=== PATIENT | male | born 1965 | race Caucasian/White ===

== ENCOUNTER → 2016-10-20 | Outpatient (CLI) | payer OTHER ==
--- NOTE | 2016-10-20 14:28 | DI ---
US GDE NDL PLCMNT BX/ASP/INJ,10/20/2016 9:56 AM: Clinical History: Thyroid nodule Previous Exam: October 06, 2016 Procedure: Risks, benefits and alternatives were explained to the patient and informed written consen t obtained. The patient was placed supine on the sonography table and the right neck prepped and draped in usual sterile fashion. 1% lidocaine was used for local anesthesia. Under sonographic guidance, 2 passes were made into a solid nodule within the inferior right thyroid lobe. The patient tolerated the procedure well and was sent home in good condition. Findings: Images demonstrate passes into the right thyroid nodule. Impression: Successful right thyroid nodule biopsy. Pathology pending.
== END ==
LOC: US 09:24
PROVIDERS: ATTEND Surgery
DX: E04.1 Nontoxic single thyroid nodule (principal); F17.220 Nicotine dependence, chewing tobacco, uncomplicated
CPT/HCPCS: 76536; 76942

== ENCOUNTER 2017-01-08 16:59 | Emergency (ER) | payer OTHER ==
[2017-01-08 17:09] VITALS: RESP 18; TEMP 98.3
[2017-01-08] MEDS ORDERED: LORazepam 2 MG/1 ML VIAL IVP ONE (17:10)
[2017-01-08] MEDS ORDERED: KETOROLAC 30 MG/1 ML VIAL IVP ONE (17:10)
[2017-01-08] MEDS ORDERED: ONDANSETRON 4 MG/2 ML VIAL IVP ONE (17:10)
[2017-01-08] MEDS ORDERED: Sodium Chloride 0.9% 1,000 ML PRIMARY IV ONE (17:10)
--- NOTE | 2017-01-08 17:16 | PDOC ---
Back Pain / Injury HPI - General Chief Complaint: Neck / Back Complaint Stated Complaint: LOW BACK PAIN Date Seen by Provider: 01/08/17 Time Seen by Provider: 17:11 Source: Patient Exam Limitations: POSITIVE: No limitations Nurse's Notes Reviewed & Considered: Yes - History of Present Illness Initial Comments: The patient comes in today with a chief complaint of lumbar back pain. Patient has a long history of back problems stemming from L1 fracture in the . Beginning this past Monday patient developed difficulty ambulating, he did have one episode of incontinence of bowel with diarrhea, nausea, sweats. He saw physical therapy on Monday was given back exercises and by Monday he had increased pain. He denies any incontinence of urine. He is stumbling some in his gait but no foot drop. Body Location Affected: REPORTS: Back Timing: REPORTS: Constant Duration: Unknown Severity: Severe Quality: REPORTS: "Pain", Sharpness, Stabbing, Throbbing, Tenderness Context: REPORTS: None Location at Time of Onset: REPORTS: Home Modifying Factors: improves with: Nothing Associated Symptoms: REPORTS: Back pain, Diaphoresis, Nausea, Rash, Diarrhea, Incontinent Stool, Difficulty Walking Similar Symptoms Previously: No Recent Care Received: REPORTS: Recently Seen (By physical therapy) Any Prior Injuries Related to Current Complaint?: Yes (L1 fracture) - Patient Home Medications Home Medications: Home Medications Melatonin/Pyridoxine [Melatonin 3 Mg Tablet] 1 each PO tab 08/30/16 Mirtazapine 30 mg PO DAILY tab 08/30/16 Fluticasone Propionate [Flonase Allergy Relief] 2 spr GENNY BID #1 spr 09/02/16 Lisinopril 1 tab PO DAILY tab 11/01/16 Hydrocodone Bit/Acetaminophen [[place] 7.5-325 Tablet] 1 tab PO Q4-6H #15 tab Metaxalone 800 mg PO TID #20 tab 01/04/17 - Patient Allergies Allergies/Adverse Reactions: Allergies Allergy/AdvReac Type Severity Reaction Status Date / Time fluoxetine HCl [From Prozac] Allergy Intermediate Unverified 01/04/17 16:49 paroxetine HCl [From Paxil] Allergy Intermediate Unverified 01/04/17 16:49 Past Medical History - heen HEENT History: Denies History Cardiovascular History: Hypertension Respiratory History: Denies History Gastrointestinal History: Denies History Genitourinary History: Denies History Endocrine History: Denies History Musculoskeletal History: Back Injury Neurological History: Denies History Blood Disorders: Denies History Psychiatric History: Denies History History of Sexually Transmitted Diseases: No Male Reproductive History: Denies History Cancer History: Denies History In Past Year Been Physically Harmed or Verbally Threatened: No History of MDRO: No History of Other Communicable Diseases: No Tobacco Use: Never Smoker Alcohol Use: Rarely Substance Use Type: None Previous Surgical History: No Significant Family History: No pertinent family hx ROS - Limitations ROS Limitations: No Limitations Constitution: REPORTS: Diaphoresis, Weakness Cardiovascular: REPORTS: Denies Cardiac Symptoms Respiratory: REPORTS: Denies Resp Symptoms Neurological: REPORTS: Difficulty Walking Gastrointestinal: REPORTS: Nausea, Diarrhea Endocrine: REPORTS: Denies Symptoms Musculoskeletal: REPORTS: Back Pain Genitourinary: REPORTS: Other (Increased frequency of urination) Eyes: REPORTS: Denies Symptoms ENT: REPORTS: Denies Symptoms Skin: REPORTS: Rash (Rash from tape on his back) Lympathic: REPORTS: Denies Lympathic Symptoms Immunologic: POSITIVE: Denies Symptoms Psychiatric: POSITIVE: Denies Psych Symptoms Back Physical Assessment - General Appearance General Appearance: REPORTS: Alert, Cooperative, No Evidence of Trauma, Mild Distress - HEENT HEENT: POSITIVE: Head Inspection Nml, Eyes Inspection Nml, Ears Inspection Nml, Nose Inspection Nml, PERRL, EOMI - Pupil Size Pupil Size: 4 mm: Bilateral - Neck Neck: POSITIVE: Non Tender, Painless ROM, Trachea Midline - Respiratory / CVS Respiratory / CVS: POSITIVE: Chest Non Tender, No Ecchymosis, Breath Sounds Normal, No Respiratory Distress, Heart Sounds Normal, Regular Rate/Rhythm - Abdomen Abdomen: Soft: (All Quadrants), Normal Bowel Sounds: (All Quadrants), Denies Tenderness: (All Quadrants) - Back Back: REPORTS: No Vertebral Tenderness, CVA Tenderness (R), Muscle Spasm (Right paraspinal muscles at the level of L1) - Skin Skin: REPORTS: Intact, Normal For Race, Warm, Dry, Rash (Rash along the paraspinal region of the 7 through L1 consistent with tape that was applied by physical therapy.) - Extremities Extremity Assessment: Non-Tender: (ALL), Normal ROM: (ALL), No Edema: (ALL), Normal Inspection: (ALL) Musculoskeletal: REPORTS: Back Pain - Neurological / Psychological Neuro / Psych: POSITIVE: Oriented X3, Motor Normal, Sensation Normal, Mood Appropriate, Affect Appropriate Back Progress - Results Reviewed by me Xrays/CTs/US Reviewed: Yes Discussed with Radiologist: Yes Lab Results Reviewed: Yes Lab Results:: Laboratory Results 01/08/17 01/08/17 Range/Units 17:23 17:25 WBC 11.75 H (4.8-10.8) 10^3/uL RBC 5.39 (4.70-6.10) 10^6/uL Hgb 15.9 (14.0-18.0) g/dL Hct 46.1 (42.0-52.0) % MCV 85.5 (80-90) FL MCH 29.5 (27-31) PG MCHC 34.5 (33-37) g/dL RDW Std Deviation 44.8 (39-50) fL RDW Coeff of [place] 14.4 (11.5-14.5) % Plt Count 363 H (140-350) 10*3/uL MPV 9.6 (7.4-12.2) FL Immature Gran % (Auto) 0.3 (0-5) % Neut % (Auto) 65.2 (50-80) % Lymph % (Auto) 24.2 (10-50) % [place] % (Auto) 7.3 (5-15) % Eos % (Auto) 2.4 (0-8) % Baso % (Auto) 0.6 (0-1) % Immature Gran # (Auto) 0.03 10*3/UL Neut # (Auto) 7.67 10*3/UL Lymph # (Auto) 2.84 10*3/uL [place] # (Auto) 0.86 H (0.3-0.8) 10*3/UL Eos # (Auto) 0.28 10*3/UL Baso # (Auto) 0.07 10*3/UL WBC Morphology Comment Normal morphology (NORM) Plt Morphology Comment Normal morphology (NORM) RBC Morph Comment Normal morphology (NORM) Sodium 138 (135-145) meq/L Potassium 3.9 (3.8-5.2) meq/L Chloride 103 (98-112) meq/L Carbon Dioxide 23 (23-33) meq/L Anion Gap 12 (5-20) BUN 16 (7-22) mg/dL Creatinine 0.8 (0.70-1.50) mg/dL Estimated GFR > 60 (>60 ml/min/1.73m(2)) BUN/Creatinine Ratio 20.00 (6-20) Glucose 98 (78-110) mg/dL Calculated Osmolality 286.0 (267-292) mOsm/kg Calcium 10.3 (8.7-10.7) mg/dL Magnesium 2.0 (1.6-2.4) mg/dL Total Bilirubin 0.8 (0.3-1.2) mg/dL AST 30 (21-57) IU/L ALT 38 (21-72) IU/L Alkaline Phosphatase 87 (38-126) IU/L C-Reactive Protein 0.6 (0.0-0.9) mg/dL Total Protein 8.0 (6.1-8.0) g/dL Albumin 4.7 (3.5-4.8) g/dL Globulin 3.3 (2.50-4.10) g/dL Albumin/Globulin Ratio 1.40 (1.3-2.0) mg/g Ur Collection Type Clean catch urine Urine Color Yellow Urine Clarity Clear (CLEAR) Urine pH 6.5 (5.0-8.5) Ur Specific [place] 1.020 (1.005-1.030) Urine Protein Negative (NEG) mg/dl Urine Glucose (UA) Negative (NEG) mg/dL Urine Ketones Negative (NEG) Urine Occult Blood Moderate H (NEG) Urine Nitrate Negative (NEG) Urine Bilirubin Negative (NEG) Urine Urobilinogen 0.2 (0.2) EU/dL Ur Leukocyte Esterase Negative (NEG) Urine RBC 5-8 (NONE) /hpf Urine WBC 1-3 (NONE) Ur Squamous Epith Cells Rare (NONE) Ur Renal Epithelial Cell None (NONE) Urine Crystals None Urine Bacteria None (NONE) Urine Casts None (NONE) Urine Mucus None (NONE) Urine Trichomonas None (NONE) Urine Yeast None (NONE) Ur Culture Indicated? Culture not set - Patient's Progress Pain Medication Addressed: POSITIVE: Yes School/Work Release Addressed: POSITIVE: Yes Re-Examine Time: 19:28 Status: POSITIVE: Improved MDM / ED Course: Patient was examined, an IV started, blood drawn and sent to the lab for studies , CT scan of abdomen was obtained. Patient received Toradol, Zofran, Ativan, Norflex. His symptoms did improve. Findings: CT scan shows degeneration of his lumbar spine with protrusion of disc into the L1-L2 disc space, as well as degeneration of L2-L3. There is also noted to be a kidney stone in the right renal parenchyma. CBC shows a slight elevation of his white count. Compressive metabolic panel is unremarkable. Next Assessment: Back pain with decreased ability for ambulation related to impingement at L1-L2. Nephrolithiasis. Plan: Discharge home, Percocet, baclofen, obtain MRI and surgical consult. - Consult Counseled: POSITIVE: Patient, RE: Lab Results, RE: Radiology Results, RE: DX, RE : Need for F/U Patient Care Time - Estimated PCT Patient Care Time (In Minutes): 45 Vital Signs - Recent Vital Signs Vital Signs: Vital Signs (Last 8 hours) Temp Pulse Resp BP Pulse Ox 01/08/17 17:01 98.3 F 92 18 180/116 96 - VS Reviewed Vital Signs Reviewed: Yes Discharge Clinical Impression: Acute low back pain, Chronic back pain Discharge Disposition: Discharged to Home Condition: Stable Patient Instructions Given at Discharge: Back Pain (ED)
[2017-01-08 17:34] LABS: BASOPHILS # (AUTO) 0.07 10*3/UL; BASOPHILS % (AUTO) 0.6 % (0-1); EOSINOPHILS # (AUTO) 0.28 10*3/UL; EOSINOPHILS % (AUTO) 2.4 % (0-8); HEMATOCRIT 46.1 % (42.0-52.0); HEMOGLOBIN 15.9 g/dL (14.0-18.0); LYMPHOCYTES # (AUTO) 2.84 10*3/uL; MEAN CORPUSCULAR HEMOGLOBIN 29.5 PG (27-31); MEAN CORPUSCULAR HGB CONC 34.5 g/dL (33-37); MEAN CORPUSCULAR VOLUME 85.5 FL (80-90); MEAN PLATELET VOLUME 9.6 FL (7.4-12.2); MONOCYTES # (AUTO) 0.86 10*3/UL (0.3-0.8); MONOCYTES % (AUTO) 7.3 % (5-15); NEUTROPHILS # (AUTO) 7.67 10*3/UL; NEUTROPHILS % (AUTO) 65.2 % (50-80); RED BLOOD COUNT 5.39 10^6/uL (4.70-6.10)
[2017-01-08 17:35] LABS: PLATELET MORPHOLOGY COMMENT NORMAL MORPHOLOGY (NORM); RBC MORPHOLOGY COMMENT NORMAL MORPHOLOGY (NORM); WBC MORPHOLOGY COMMENT NORMAL MORPHOLOGY (NORM)
[2017-01-08 17:46] LABS: BLOOD UREA NITROGEN 16 mg/dL (7-22); C-REACTIVE PROTEIN 0.6 mg/dL (0.0-0.9); CALCIUM 10.3 mg/dL (8.7-10.7); EST GLOMERULAR FILTRATION > 60 (>60 ml/min/1.73m(2)); SERUM ALBUMIN 4.7 g/dL (3.5-4.8)
[2017-01-08 17:49] LABS: BILIRUBIN,URINE NEGATIVE (NEG); CLARITY,URINE CLEAR (CLEAR); COLOR,URINE YELLOW; GLUCOSE, URINE (UA) NEGATIVE (NEG); NITRATE,URINE NEGATIVE (NEG); OCCULT BLOOD,URINE MODERATE (NEG); PH,URINE 6.5 (5.0-8.5); PROTEIN,URINE NEGATIVE (NEG); URINE SAMPLE TYPE CLEAN CATCH URINE; UROBILINOGEN,URINE 0.2 EU/dL (0.2)
[2017-01-08 17:50] LABS: SQUAMOUS EPITHELIAL CELL,UR RARE
--- NOTE | 2017-01-08 19:37 | DI ---
HISTORY: Hematuria and pain in the L1 level. COMPARISON: None available. TECHNIQUE: Multiple helically acquired CT images were obtained through the abdomen and pelvis withou t contrast. FINDINGS: Examination demonstrates a normal urinary bladder. There are degenerative changes involving the L2/L3 level where there is partial fusion on the left. There is also small lucency within the left L3 vertebral body measuring 8 mm in diameter. There is also focal kyphosis centered at the L1/L2 level with some posteriorly projecting osteophytes and some disc material into the central canal. There is also a right 5 mm renal parenchymal stone within the infra-pole of the right kidney. There is no hydronephrosis nor nephrolithiasis. The ureters are normal in course and caliber. The liver, spleen, pancreas and adrenals are unremarkable. The appendix is also normal. Moderate stool seen throughout the colon. The urinary bladder is unremarkable. The lung bases are clear. IMPRESSION: 1. Focal kyphosis at the L1/L2 level with posterior protrusion of endplate osteophytes and disc mater ial likely causing significant stenosis. Consider MRI for further evaluation. 2. Degenerative endplate changes and sclerosis of the L2/L3 level with a small lucency involving the L3 vertebral body. This is most likely post traumatic or chronic degenerative. Cannot rule out the possibility of an old infection. This would very unlikely represent an osteoid osteoma. Recommend MR I lumbar spine for further evaluation. NOTIFICATION: The above findings and recommendations were phoned to Keely Douglas in the ER [facility] on 01/08/2017 at 09:55 PM EST.
== END 2017-01-08 20:04 | disposition home or self-care (01) ==
LOC: ER 16:59
DX: M54.5 Low back pain (principal); R15.9 Full incontinence of feces; R11.0 Nausea; M51.36 Other intervertebral disc degeneration, lumbar region
CPT/HCPCS: 74176; 80053; 81001; 81003; 83735; 85025; 86140; 96361; 96374; 96375; 99283 ×2; J1885; J2360; J2060; J2405; J7030

== ENCOUNTER → 2017-01-13 | Outpatient (CLI) | payer OTHER ==
--- NOTE | 2017-01-13 15:27 | DI ---
MRI LUMBAR SPINE W/WO CN,01/13/2017 10:52 AM: Clinical History: The disc impingement at L1/2. Previous Exam: CT abdomen pelvis performed January 08, 2017 Findings: Multiplanar MR images are obtained through the lumbar spine with and without intravenous contrast, an d demonstrate reversal of the normal lordotic curvature of the lumbar spine centered at the L1/2 leve l. The kidneys are unremarkable. The major vascular flow voids are also unremarkable. The paravertebral soft tissues are unremarkable as well. Signal the distal spinal cord is normal and the conus is seen at the L1 level. Individual intervertebral disc spaces: T12/L1: There is disc desiccation, annular fissuring and a bro ad-based disc bulge contributing to moderate central canal stenosis. There is also facet hypertrophy with no significant neural foraminal narrowing. L1/2: There is a broad-based disc bulge with some endplate osteophytes at this level combining with s ome facet and ligamentum flavum hypertrophy to cause severe central canal stenosis and mild bilateral neural foraminal narrowing. L2/3: There is disc desiccation and irregularity of the vertebral body. There is a far lateral compon ent on the left. There are endplate osteophytes as well. There is mild facet hypertrophy. There is mi ld central canal stenosis at this level and mild to moderate bilateral neuroforaminal narrowing. L3/4: There is a broad-based disc bulge with disc desiccation and some annular fissuring combining wi th facet and ligamentum flavum hypertrophy to cause severe central canal stenosis and moderate to sev ere bilateral neural foraminal narrowing. L4/5: There is a broad-based disc bulge and some mild facet and ligamentum flavum hypertrophy contrib uting to severe right and moderate to severe left lateral recess stenosis. L5/S1: There is disc desiccation, annular fissuring and a broad-based disc bulge combining with some facet and ligamentum flavum hypertrophy to cause moderate to severe right and mild left neural forami nal narrowing. Impression: 1. Severe central canal stenosis at L1/2 and L3/4. 2. Severe lateral recess stenosis at L4/5 on the right and L5/S1 on the right. 3. Moderate to severe bilateral neural foraminal narrowing at L3/4. Other less severe findings as above.
== END ==
LOC: MRI 10:36
PROVIDERS: ATTEND Family Medicine
DX: M54.5 Low back pain (principal); M48.06 Spinal stenosis, lumbar region; M48.07 Spinal stenosis, lumbosacral region
CPT/HCPCS: 72158; A9579

== ENCOUNTER → 2017-01-17 | Outpatient (CLI) | payer OTHER ==
--- NOTE | 2017-01-17 16:39 | DI ---
LUMBAR SPINE SERIES, 01/17/2017 10:46 AM: Clinical History: Low back pain. Previous Exam: None at this facility. 3 routine upright views are submitted. The vertebral bodies are of normal height and size. There is m oderate chronic disc space narrowing at L2-3 and L5-S1 with extensive osteophytic spurring along the left anterolateral aspect of the L2-3 disc space level. Arthritic changes are present in the L5-S1 ap ophyseal joints bilaterally. The pedicles and remaining posterior elements are normal. Both SI joints are normal. There is a defect in the superior aspect of the left iliac wing and the appearance is co nsistent with the iliac crest representing a donor site for bone grafts. Readin. Chronic disc space narrowing at L2-3 and L5-S1 with arthritic changes in the apophyseal joints bi laterally at L5-S1. 2. There is extensive osteophytic spurring along the left anterolateral margin of the L2-3 disc spac e.
== END ==
LOC: ORTHO 12:01
PROVIDERS: ATTEND Physician Assistant
DX: M54.5 Low back pain (principal); M51.16 Intervertebral disc disorders with radiculopathy, lumbar region; M47.16 Other spondylosis with myelopathy, lumbar region
CPT/HCPCS: 72110

== ENCOUNTER → 2017-05-02 | Outpatient (CLI) | payer OTHER ==
--- NOTE | 2017-05-02 11:54 | DI ---
THYROID ULTRASOUND, 05/02/2017 10:39 AM Clinical History: Thyroid nodule. Previous Exam: 10/06/2016. Scans are performed through both lobes of the thyroid gland in multiple projections with the high res olution linear array probe. Color Doppler ultrasound is also performed. The right lobe is larger than the left lobe. The right and left lobes measure 17 x 17 x 49 mm, and 15 x 13 x 33 mm, in the AP, transverse, and longitudinal dimensions, respectively. The sonographic text ure is normal. In the lower pole of the right lobe is the previously noted solid nodule with a sonolu cent "capsule" that measures approximately 9 x 11 x 12 mm. The previous scan date measurements of 9 x 9 x 11 mm. Because the scans and the measurements are not obtained exactly in the same fashion as on the earlier study, the differences in measurements are felt to be insignificant and within the expec gerda range for inter-automatic fancy machine operator variability. The lesion is solid and has slightly increased vascularity. The remainder of the thyroid gland is normal. Readin. The well-circumscribed solid lesion in the lower pole of the right lobe of the thyroid gland has not changed. There is a hypoechoic perimeter or "capsule". The differences in measurement between the 2 studies is felt to represent inter-automatic fancy machine operator variability. 2. The remainder of the thyroid gland is normal.
== END ==
LOC: US 10:34
PROVIDERS: ATTEND Surgery
DX: E04.1 Nontoxic single thyroid nodule (principal)
CPT/HCPCS: 76536

== ENCOUNTER 2017-06-27 14:01 | Inpatient (IN) ==
[2017-06-27] MEDS ORDERED: ONDANSETRON 4 MG/2 ML VIAL IVP ONE (14:26)
[2017-06-27] MEDS ORDERED: NORMAL SALINE 10 ML SYRINGE FLUSH IVP PRN ×2 (14:26→18:03)
[2017-06-27] MEDS ORDERED: Sodium Chloride 0.9% 1,000 ML PRIMARY IV ONE ×3 (14:26→21:29)
[2017-06-27] MEDS ORDERED: MORPHINE SULFATE 4 MG/1 ML IVP ONE ×2 (14:26→18:18)
[2017-06-27 14:53] LABS: BASOPHILS # (AUTO) 0.14 10*3/UL; BASOPHILS % (AUTO) 0.7 % (0-1); EOSINOPHILS # (AUTO) 0.04 10*3/UL; EOSINOPHILS % (AUTO) 0.2 % (0-8); Hemoglobin [HGB] 13.7 g/dL (14.0-18.0); LYMPHOCYTES # (AUTO) 1.21 10*3/uL; MEAN CORPUSCULAR HEMOGLOBIN 29.4 PG (27-31); MEAN CORPUSCULAR HGB CONC 34.3 g/dL (33-37); MEAN CORPUSCULAR VOLUME 85.8 FL (80-90); MEAN PLATELET VOLUME 9.8 FL (7.4-12.2); MONOCYTES # (AUTO) 1.54 10*3/UL (0.3-0.8); MONOCYTES % (AUTO) 8.1 % (5-15); NEUTROPHILS # (AUTO) 16.12 10*3/UL; NEUTROPHILS % (AUTO) 84.5 % (50-80); RED BLOOD COUNT 4.66 10^6/uL (4.70-6.10)
[2017-06-27 15:03] LABS: BLOOD UREA NITROGEN 15 mg/dL (7-22); BUN/CREATININE RATIO 18.75 (6-20); LIPASE 32 IU/L (23-300); SERUM ALBUMIN 4.2 g/dL (3.5-4.8)
[2017-06-27 15:13] LABS: PLATELET MORPHOLOGY COMMENT NORMAL MORPHOLOGY (NORM); RBC MORPHOLOGY COMMENT NORMAL MORPHOLOGY (NORM); WBC MORPHOLOGY COMMENT NORMAL MORPHOLOGY (NORM)
[2017-06-27 15:32] LABS: BILIRUBIN,URINE NEGATIVE (NEG); CLARITY,URINE Slightly Cloudy (CLEAR); COLOR,URINE YELLOW (Y); GLUCOSE, URINE (UA) NEGATIVE (NEG); NITRATE,URINE POSITIVE (NEG); OCCULT BLOOD,URINE LARGE (NEG); PH,URINE 7.5 (5.0-8.5); PROTEIN,URINE 100 mg/dl (NEG)
--- NOTE | 2017-06-27 15:37 | DI ---
XR CXR 1VW,06/27/2017 3:06 PM: Clinical History: Additional sepsis screening. Previous Exam: None at this facility. Findings: A single frontal radiograph of the chest is obtained, and demonstrates clear lungs. The cardiomediast inum and bony thorax are unremarkable. Impression: Normal chest.
[2017-06-27 15:38] LABS: BACTERIA,URINE MANY; URINE SAMPLE TYPE CLEAN CATCH URINE; WBC,URINE 20-30
--- NOTE | 2017-06-27 17:03 | DI ---
CT CTA Chest Non-Coronary O,06/27/2017 3:31 PM: Clinical History: Shortness of breath. Previous Exam: None at this facility. Findings: Multiple helically acquired CT images are obtained through the chest following the intravenous admini stration of 110 cc of Isovue 370, and demonstrate mild subsegmental atelectasis. Mild degenerative changes of the thoracic spine are seen. The pulmonary arteries are normal demonstrating no evidence of filling defect or truncation to sugges t pulmonary embolism. The aorta is unremarkable. The thyroid is also unremarkable. Mild degenerative changes of the thoraci c spine are seen. The upper abdomen is unremarkable. Impression: No evidence of pulmonary embolism.
--- NOTE | 2017-06-27 17:22 | DI ---
CT Abdomen/Pelvis W Contrast,06/27/2017 3:32 PM: Clinical History: Abdominal pain. Previous Exam: None at this facility. Findings: Multiple helically acquired CT images are obtained through the abdomen and pelvis following intraveno us administration of contrast, and demonstrate clear lung bases. The ureters demonstrate normal course, caliber and appearance within orthotopic insertion on the urin beto bladder. A small amount of stool seen throughout the colon. Multiple bilateral simple renal cysts are noted. There are also small subcentimeter hypodensities too small to characterize which probably also represent simple cysts. The adrenals, pancreas, spleen and gallbladder are unremarkable. There is a small amount of fatty inf iltration of the liver. The appendix is normal. The urinary bladder is not well evaluated, but is grossly normal. Diffuse degenerative changes of the spine are seen. Impression: No acute intra-abdominal pathology.
[2017-06-27] MEDS ORDERED: Ertapenem Inj 1 GM in Sodium Chloride 0.9% 100 ML IV ONE (17:41)
[2017-06-27] MEDS ORDERED: Levofloxacin (Premix) 750 MG/150 ML PIGGYBACK IV ONE ×2 (17:52→18:09)
[2017-06-27] MEDS ORDERED: MORPHINE SULFATE 2 MG/1 ML IVP PRN (18:03)
[2017-06-27] MEDS ORDERED: LIDOCAINE W/ SODIUM BICARB 0.5 ML SYR SUBD PRN (18:03)
[2017-06-27] MEDS: ACETAMINOPHEN 325 MG TABLET PO PRN (19:16)
--- NOTE | 2017-06-27 20:49 | PDOC ---
HPI - History of Present Illness History of Present Illness: Visit michelle 52-year-old gentleman past medical history of depression and hypertension is on Remeron for his depression and this was given to him by Dr. Tapia at the [place] and then is been continued by heard his doctor in [place] he stays here but he is from [place]. He's also been seen previously in the ER with the for blood in his urine which diet which was diagnosed with a kidney stone he's also had MRIs of his lower back which showed canal stenosis in the past he also had a fine-needle biopsy of a thyroid nodule which was inconclusive. Was seen in the ER this evening because of her right lower inguinal and right flank pain CT scan of his chest abdomen and pelvis showed no PE no acute abdominal pathology but positive UA patient was admitted for a urinary tract infection/pyelonephritis/possible prostatitis. He also states that is been having some blood in his urine for the last 2 weeks but didn't think much of it. Appears very weak he is with fever I don't know if that he got his blood cultures drawn in the ER before antibiotic was given nevertheless I will draw blood cultures if they were not done in the ER Past Medical History Medical History: Hypertension, lower back care neural foraminal stenosis at all levels from MRI in the past, depression Tobacco Use: Former Smoker In the Past 12 Months, Have Used or Abuse Any of the Following Substance: None Alcohol Use: None Medication / Allergies Home Medications: Home Medications Medication Instructions Recorded Confirmed Type Melatonin/Pyridoxine [Melatonin 3 1 ea PO PRN tab 08/30/16 06/27/17 History Mg Tablet] Mirtazapine 30 mg PO DAILY tab 08/30/16 06/27/17 History Clindamycin HCl 300 mg PO TID #30 cap 05/01/17 Clinic Losartan [Cozaar] 1 tab PO DAILY 06/12/17 06/27/17 History Varenicline Tartrate [Chantix] 1 tab PO DAILY 06/12/17 06/27/17 History Allergies/Adverse Reactions: Allergies 3 Allergy/AdvReac Type Severity Reaction Status Date / Time fluoxetine HCl [From Prozac] Allergy Intermediate PARKINSON Verified 06/27/17 14 :16 LIKE SYMPTOMS paroxetine HCl [From Paxil] Allergy Intermediate PARKINSON Verified 06/27/17 14: 16 LIKE SYMPTOMS Review of Systems - Review of Systems All Systems: Reviewed & No Additional Complaints Except as Stated - Constitutional Constitutional: REPORTS: General Health Fair. DENIES: Weight Loss, Night Sweats , Fatigue - Eye Exam Eye Exam: DENIES: Negative System Review, Acuity Good, Acuity Fair, Acuity Poor , Glasses/Contacts, Vision Loss, Blurring, Redness, Diplopia, Catarats, Other, See HPI - Respiratory Respiratory: DENIES: Negative System Review, Cough, Sputum, Dyspnea At Rest, Dyspnea with Exertion, Pleuritic Pain, Hemoptysis, Wheezing, Other, See HPI - Gastrointestinal Gastrointestinal / Abdominal: DENIES: Negative System Review, Nausea, Vomiting, Diarrhea, Constipation, Abdominal Pain, Bloody Stool, Poor Appetite, Heartburn, Regurgitation, Bloating, Lactose Intolerance, Melena, Bright Red Blood per Rectum, Other, See HPI - Genitourinary Genitourinary: REPORTS: Hematuria, Decreased Stream - Psychiatric Psychiatric: DENIES: Hopelessness, Suicidality, Tearfullness Exam - Vitals Vital Signs: Vital Signs Temperature 101.0 F Temperature Source Temporal Artery Scan Pulse Rate [Pulse Oximeter] 114 Pulse Rate 108 Respiratory Rate 16 Blood Pressure 115/66 Pulse Ox 90 Oxygen Flow Rate 2 Oxygen Delivery Method Nasal Cannula Height 5 ft 11 in Weight 238 lb 9.6 oz - General General Appearance: No Acute Distress, Cooperative - Eye Eye Exam: POSITIVE: Normal Appearance, PERRL - Respiratory Respiratory Exam: POSITIVE: Clear to Auscultation - Bilaterally, Breathing Non Labored - Cardiovascular Cardiovascular Exam: POSITIVE: RRR, No Murmur, No Clicks - GI/Abdominal GI/Abdominal Exam: POSITIVE: Normal Bowel Sounds, Non Tender, Non Distended, Soft - Extremities Extremities Exam: POSITIVE: Normal Inspection, No Clubbing Present, No Edema Present - Neurological Neurological Exam: POSITIVE: Alert, Oriented x 3, CN II-XII Intact - Psychiatric Psychiatric Exam: POSITIVE: Normal Affect, Normal Mood Results - Labs CBC and BMP: 06/27/17 14:45 06/27/17 14:45 Assessment and Plan - Patient Problems (1) UTI (urinary tract infection) Current Visit: Yes Status: Acute Comment: pos u/a could also be prostate this is why we will choose levaquin. ct chest abd pelvis unremarkable. will piero need to follow with urology Code(s): N39.0 - Urinary tract infection, site not specified Qualifiers: Urinary tract infection type: acute pyelonephritis Qualified Code(s): N10 - Acute pyelonephritis (2) Hypertension Current Visit: No Status: Acute Comment: Patient was started on Levaquin and IV fluids with potassium replacement I will also check a PSA and a TSH we will resume his usual blood pressure medication and depression medication Code (s): I10 - Essential (primary) hypertension
[2017-06-27] MEDS ORDERED: Mirtazapine Tab 7.5 MG TABLET PO SCH (21:00)
[2017-06-27] MEDS ORDERED: Mirtazapine Tab 30 MG TAB PO SCH (22:15)
[2017-06-27] MEDS: Mirtazapine Tab 15 MG TAB PO SCH (22:34)
[2017-06-27] MEDS: IBUPROFEN 800 MG TABLET PO PRN (22:35)
[2017-06-27] MEDS: Mirtazapine Tab 30 MG TAB PO SCH (22:35)
--- NOTE | 2017-06-28 02:25 | PDOC ---
Abdomen/Flank HPI - General Chief Complaint: Abdomen Pain Stated Complaint: ABDOMINAL PAIN Date Seen by Provider: 06/27/17 Time Seen by Provider: 14:10 Source: POSITIVE: Patient Exam Limitations: POSITIVE: No limitations Nurse's Notes Reviewed & Considered: Yes EMS Report Reviewed & Considered: Verbal - History of Present Illness Initial Comments: The patient is a 52-year-old male who is brought to the emergency room by ambulance. He states that for the past 18 hours, approximately, he has had a fever and cough. He also complains of a poorly localized pain right side of the abdomen. He is brought to the emergency room by ambulance. He states he feels "very weak". He states he had an episode of vomiting. No diarrhea. He' s not had any history of abdominal surgery. He's had 2 surgical procedures on his lower back, apparently a laminectomy and a discectomy. History of hypertension. He states he does not smoke but he chews tobacco and is trying to quit with the aid of Chantex. Body Location Affected: REPORTS: Chest (Cough), Abdomen (Right lower abdominal discomfort) Timing: REPORTS: Gradual, Getting Worse Duration: <24 hours (Approximately 18-20 hours) Severity: Moderate Quality: REPORTS: "Pain" (Right lower abdominal discomfort/pain) Abdominal Pain Onset Location: REPORTS: RLQ Abdominal Pain Radiation: REPORTS: No radiation Context: REPORTS: None Modifying Factors: improves with: Coughing, Vomiting (One episode of vomiting) Associated Symptoms: REPORTS: Chills, Fever, Fatigue, Nausea, Vomiting (Times one), Other (Patient states he thinks he may have had some blood in his urine recently.) Similar Symptoms Previously: No Recent Care Received: REPORTS: Denies Any Prior Injuries Related to Current Complaint?: No - Patient Home Medications Home Medications: Home Medications Melatonin/Pyridoxine [Melatonin 3 Mg Tablet] 1 ea PO PRN tab 08/30/16 Mirtazapine 30 mg PO DAILY tab 08/30/16 Clindamycin HCl 300 mg PO TID #30 cap 05/01/17 Losartan [Cozaar] 1 tab PO DAILY 06/12/17 Varenicline Tartrate [Chantix] 1 tab PO DAILY 06/12/17 - Patient Allergies Allergies/Adverse Reactions: Allergies 3 Allergy/AdvReac Type Severity Reaction Status Date / Time fluoxetine HCl [From Prozac] Allergy Intermediate PARKINSON Verified 06/27/17 14 :16 LIKE SYMPTOMS paroxetine HCl [From Paxil] Allergy Intermediate PARKINSON Verified 06/27/17 14: 16 LIKE SYMPTOMS Past Medical History - heen HEENT History: Denies History Cardiovascular History: Hypertension Respiratory History: Denies History Gastrointestinal History: Denies History Genitourinary History: Denies History, Kidney Stones Additional Genitourinary History: HX OF 2 ON L 1 ON R. Endocrine History: Denies History Musculoskeletal History: Back Injury Prosthesis or Implant: No Neurological History: Denies History Blood Disorders: Denies History Psychiatric History: Denies History Additional Psychiatric History: INSOMNIA History of Sexually Transmitted Diseases: No Cancer History: Denies History In Past Year Been Physically Harmed or Verbally Threatened: No History of MDRO: No History of Other Communicable Diseases: No Tobacco Use: Former Smoker Alcohol Use: Rarely In the Past 12 Months, Have Used or Abuse Any Substance: None Previous Surgical History: Yes Type / Date of Surgery: 1 BACK FUSION, 1 LAMENECTOMY DISKECTOMY Anesthesia Reactions: No Malignant Hyperthermia: No Significant Family History: No pertinent family hx Past Medical History Reviewed: Reviewed - No Changes ROS - Limitations ROS Limitations: No Limitations Constitution: REPORTS: Chills, Fever, Weakness Cardiovascular: REPORTS: Denies Cardiac Symptoms Respiratory: REPORTS: Cough Non Productive Neurological: REPORTS: Denies Neuro Symptoms Gastrointestinal: REPORTS: Abdominal Pain, Nausea, Vomitting Endocrine: REPORTS: Denies Symptoms Musculoskeletal: REPORTS: Denies MS Symptoms Genitourinary: REPORTS: Hematuria (Possibly some hematuria by history recently) Eyes: REPORTS: Denies Symptoms ENT: REPORTS: Denies Symptoms Skin: REPORTS: Denies Skin Symptoms Lympathic: REPORTS: Denies Lympathic Symptoms Immunologic: POSITIVE: Denies Symptoms Psychiatric: POSITIVE: Denies Psych Symptoms Abdominal/Flank Pain PE - General Appearance General Appearance: POSITIVE: Alert, Cooperative, No Acute Distress, No Evidence of Trauma - HEENT HEENT: POSITIVE: Head Inspection Nml, Eyes Inspection Nml, Ears Inspection Nml, Nose Inspection Nml, Oral/Dental Inspect. Nml, Pharynx Inspect. Nml, PERRL, EOMI - Neck Neck: POSITIVE: Normal Inspection, No Apparent Injury - Respiratory Respiratory: POSITIVE: No Respiratory Distress, Breath Sounds Normal, Chest Non- Tender - Cardiovascular Cardiovascular: POSITIVE: Regular Rate and Rhythm, Heart Sounds Normal, Equal Pulses, Strong Pulses Peripheral Pulses: Radial (R): 2+, Radial (L): 2+ - Chest Chest: POSITIVE: Non Tender - Abdomen Abdomen: Soft: (All Quadrants), Normal Bowel Sounds: (All Quadrants), Denies Tenderness: (LLQ), (LUQ), (RUQ), No Splenomegaly: (All Quadrants), No Hepatomegaly: (All Quadrants), No Guarding: (All Quadrants), No Rebound: (All Quadrants), No Palpable Pulse: (All Quadrants), No Palpabale Mass: (All Quadrants), No Distention: (All Quadrants), No Rigidity: (All Quadrants), Tenderness Noted: (RLQ) Additional Abdominal Details: Abdominal examination shows bowel sounds to be active. Patient does express some poorly localized discomfort over the distal half of the right side of the abdomen, without masses, organomegaly or rebound. Patient states that the discomfort tends to be "stabbing" in nature and to wax and wane. - Genital / Rectal Male Genital: POSITIVE: Normal Inspection. NEGATIVE: Testicular Tenderness, Testicular Swelling, Inguinal Tenderness, Inguinal Swelling, Blood At Urethral Meatus - Back Back: POSITIVE: Normal Inspection - Skin Skin: POSITIVE: Intact, Normal For Race, Warm, Dry, No Rash - Extremities Extremity: Non-Tender: (All Extremities), Normal ROM: (All Extremities), Normal Inspection: (All Extremities) - Neurological Neurological: POSITIVE: Oriented X3, mechanical and auto body car checker Normal As Tested, Motor Normal, Sensation Normal, 5, 6 Images - Complete Complete: 1 - Area of described discomfort/pain Abdomen Progress - Results Reviewed by me Xrays/CTs/US Reviewed by me: Yes Discussed with Radiologist: Yes Radiology Findings: Chest x-ray was normal. CTA chest was normal; CTA chest was obtained due to the patient's complaint of cough and an elevated d-dimer. CT of the abdomen and pelvis with IV contrast read as normal by radiologist. Lab Results Reviewed by Me: Yes (urinalysis nitrate positive; 20-30 white blood cells per high-power field; ) CBC and BMP: 06/27/17 14:45 06/27/17 14:45 - Patient's Progress Pain Medication Addressed: POSITIVE: Yes (Patient given morphine sulfate IV in the emergency room for his pain) School/Work Release Addressed: POSITIVE: Not Applicable Re-examine Time: 17:30 Re-Examine Comment: Blood cultures were drawn in the emergency room and 1 g of Invanz given. Upon consultation with hospitalist, Levaquin, 750 mg IV given. Results of radiology and laboratory studies discussed with patient. Status: POSITIVE: Unchanged, Re-Examined - Consult Consult (If Yes, Name of Consulting MD & Time Called): Yes (Dr. Williamson, hospitalist [id number],) Consulting MD will see pt:: POSITIVE: [facility] Admit Counseled: POSITIVE: Patient, RE: Lab Results, RE: Radiology Results, RE: DX, RE : Need for F/U Patient Care Time - Estimated PCT Patient Care Time (In Minutes): 65 Vital Signs - Recent Vital Signs Vital Signs: Vital Signs (Last 8 hours) Temp Pulse Pulse Resp BP BP Pulse Ox 06/28/17 00:40 98.5 F 84 18 112/55 97 06/27/17 22:35 99.8 F H 06/27/17 21:56 99.8 F H 06/27/17 20:45 101.3 F H 105 H 20 128/69 95 06/27/17 19:46 99.8 F H 06/27/17 19:16 101.0 F H 06/27/17 18:35 114 H 16 06/27/17 18:28 101.6 F H 108 H 115/66 90 - VS Reviewed Vital Signs Reviewed: Yes Discharge Clinical Impression: Urinary tract infection Qualifiers: Urinary tract infection type: acute pyelonephritis Qualified Code(s): N10 - Acute pyelonephritis Discharge Disposition: Admit to Inpatient Condition: Stable Date Decision to Admit to Inpatient: 06/27/17 Time Decision to Admit to Inpatient: 17:45
[2017-06-28] MEDS ORDERED: VARENICLINE 1 MG PO SCH (09:00)
[2017-06-28] MEDS ORDERED: LOSARTAN 25 MG TABLET PO SCH (09:00)
[2017-06-28 09:38] LABS: BASOPHILS # (AUTO) 0.31 10*3/UL; BASOPHILS % (AUTO) 1.9 % (0-1); EOSINOPHILS # (AUTO) 0.09 10*3/UL; EOSINOPHILS % (AUTO) 0.5 % (0-8); Hematocrit [HCT] 37.4 % (42.0-52.0); Hemoglobin [HGB] 12.6 g/dL (14.0-18.0); LYMPHOCYTES # (AUTO) 0.96 10*3/uL; MEAN CORPUSCULAR HEMOGLOBIN 29.7 PG (27-31); MEAN CORPUSCULAR HGB CONC 33.7 g/dL (33-37); MEAN CORPUSCULAR VOLUME 88.2 FL (80-90); MEAN PLATELET VOLUME 9.8 FL (7.4-12.2); MONOCYTES # (AUTO) 1.46 10*3/UL (0.3-0.8); MONOCYTES % (AUTO) 8.8 % (5-15); NEUTROPHILS # (AUTO) 13.58 10*3/UL; NEUTROPHILS % (AUTO) 82.2 % (50-80); RED BLOOD COUNT 4.24 10^6/uL (4.70-6.10)
[2017-06-28 09:43] LABS: BLOOD UREA NITROGEN 9 mg/dL (7-22); BUN/CREATININE RATIO 12.85 (6-20); SERUM ALBUMIN 3.1 g/dL (3.5-4.8)
[2017-06-28 09:49] LABS: PLATELET MORPHOLOGY COMMENT NORMAL MORPHOLOGY (NORM); RBC MORPHOLOGY COMMENT NORMAL MORPHOLOGY (NORM); WBC MORPHOLOGY COMMENT NORMAL MORPHOLOGY (NORM)
[2017-06-28] MEDS: IBUPROFEN 800 MG TABLET PO PRN ×2 (10:13→19:38)
--- NOTE | 2017-06-28 10:24 | PDOC(PROG) ---
Interval History: Patient is doing a little better today still has some sharp pains off and on in his right groin this could also be neurological considering is a MRI from a few months ago he is making good urine Objective : Data - Labs CBC and BMP: 06/28/17 08:15 06/28/17 08:15 Objective : Exam - General General Appearance: Cooperative - Head Head Exam: Normal Inspection, Atraumatic - Respiratory Respiratory Exam: Clear to Auscultation - Bilaterally, Breathing Non Labored, Normal To Percussion, Normal to Percussion and Palpation - Cardiovascular Cardiovascular Exam: RRR, No Murmur, No Clicks, No Gallops - GI/Abdominal GI/Abdominal Exam: Non Distended, Soft Additional GI/Abdominal Exam Details: Some right groin pain is sharp and comes and goes no guarding or rebound - Extremities Extremities Exam: No Clubbing Present, No Edema Present, No Cyanosis Present Assessment and Plan - Patient Problems (1) UTI (urinary tract infection) Current Visit: Yes Status: Acute Comment: Continue IV levofloxacin white count is improved the pressure is stable lactate is normal continue current treatment I will order ultrasound of bilateral kidneys Code(s): N39.0 - Urinary tract infection, site not specified Qualifiers: Urinary tract infection type: acute pyelonephritis Qualified Code(s): N10 - Acute pyelonephritis (2) Hypertension Current Visit: No Status: Acute Comment: Stable at present time Code(s): I10 - Essential (primary) hypertension
--- NOTE | 2017-06-28 13:08 | DI ---
US Retroperitoneum,06/28/2017 10:04 AM: Clinical History: Pyelonephritis. Previous Exam: None at this facility. Findings: Multiple grayscale and color Doppler sonographic images are obtained through the retroperitoneum, and demonstrate a normal-appearing right kidney measuring 12.5 cm in length. There is a small simple cys t noted in the interpolar region of the right kidney. The simple cyst measures 2.0 x 2.5 x 2.3 cm. The left kidney measures 12.8 cm in length without hydronephrosis nor nephrolithiasis. The urinary bladder demonstrates a a prevoid volume of 433 cc with a post void residual of 124 cc. Issa th ureteral jets are identified. There is no evidence of renal abscess. Impression: 1. No evidence of renal abscess. 2. Small postvoid residual.
[2017-06-28] MEDS ORDERED: FUROSEMIDE 10 MG/1 ML - 2 ML VIAL IVP ONE (17:33)
[2017-06-28] MEDS ORDERED: Levofloxacin (Premix) 750 MG/150 ML PIGGYBACK IV SCH ×2 (18:00→19:00)
[2017-06-28] MEDS: ACETAMINOPHEN 325 MG TABLET PO PRN (18:44)
[2017-06-28] MEDS ORDERED: ZOLPIDEM 10 MG TABLET PO ONE (20:14)
[2017-06-28] MEDS: Mirtazapine Tab 30 MG TAB PO SCH (20:53)
[2017-06-28] MEDS: Mirtazapine Tab 15 MG TAB PO SCH (20:53)
[2017-06-28] MEDS ORDERED: Mirtazapine Tab 30 MG TAB PO SCH (21:00)
[2017-06-29 04:46] LABS: BASOPHILS # (AUTO) 0.02 10*3/UL; BASOPHILS % (AUTO) 0.2 % (0-1); EOSINOPHILS # (AUTO) 0.04 10*3/UL; EOSINOPHILS % (AUTO) 0.4 % (0-8); Hematocrit [HCT] 36.4 % (42.0-52.0); Hemoglobin [HGB] 12.1 g/dL (14.0-18.0); MEAN CORPUSCULAR HEMOGLOBIN 29.1 PG (27-31); MEAN CORPUSCULAR HGB CONC 33.2 g/dL (33-37); MEAN CORPUSCULAR VOLUME 87.5 FL (80-90); MEAN PLATELET VOLUME 10.2 FL (7.4-12.2); MONOCYTES # (AUTO) 0.69 10*3/UL (0.3-0.8); MONOCYTES % (AUTO) 7.3 % (5-15); NEUTROPHILS # (AUTO) 7.83 10*3/UL; NEUTROPHILS % (AUTO) 83.3 % (50-80); RED BLOOD COUNT 4.16 10^6/uL (4.70-6.10)
[2017-06-29 04:58] LABS: BLOOD UREA NITROGEN 7 mg/dL (7-22); BUN/CREATININE RATIO 8.75 (6-20); SERUM ALBUMIN 3.4 g/dL (3.5-4.8)
[2017-06-29] MEDS: POTASSIUM CHLORIDE 20 MEQ TAB PO SCH ×2 (08:57→20:12)
[2017-06-29 09:16] LABS: PLATELET MORPHOLOGY COMMENT NORMAL MORPHOLOGY (NORM); RBC MORPHOLOGY COMMENT NORMAL MORPHOLOGY (NORM); WBC MORPHOLOGY COMMENT NORMAL MORPHOLOGY (NORM)
--- NOTE | 2017-06-29 11:17 | PTI REPORT ---
Thank you for the referral of Venu Desai. He was seen on 06/29/17 for an inpatient evaluation secondary to weakness. SUBJECTIVE: The patient is a 52-year-old male. The patient reports he is in a lot of pain; he complains of right lower abdominal pain of 4 to 5/10 on the verbal analog scale (0=no pain, 10=worst pain) that is sharp and also achy. He states at best his pain is 3/10 and at worst his pain is an 8/10. The patient reports he lives in [place] but also stays here in [place] with a roommate in a trailer. Both homes have two steps to enter. He has no difficulties; he is independent with iADLs and ADLs. The patient does not use any assistive device or supplemental oxygen. PAST MEDICAL HISTORY: Past medical history can be found in the patient's medical record. OBJECTIVE FINDINGS: Range of motion: Range of motion of bilateral upper and lower extremities are within functional limits. Strength: Manual muscle testing is 4+/5 throughout upper extremities and 4+/5 throughout bilateral lower extremities. Bed mobility: The patient is able to complete bed mobility including rolling to the left and right with modified independence. Transfers: The patient is able to transfer from sit to stand with contact guard assist for safety. Ambulation: The patient is able to ambulate 20 feet with contact guard for safety awareness and tactile cueing. Balance: The patient demonstrates good static and dynamic sitting balance, good static standing balance, and fair dynamic standing balance. ASSESSMENT: The patient has subjective and objective findings consistent with generalized weakness and would benefit from continued skilled care at this time. Short-Term Goals: To be met by discharge from inpatient: Patient will be able to demonstrate 5-/5 bilateral lower extremity strength for carry over for gait and transfer safety. Patient will demonstrate good dynamic standing balance. Patient will be able to complete 150 feet of ambulation with least restrictive assistive device and supervision. Patient will be able to complete bed mobility/rolling and sit to stand transfers with supervision. Long-Term Goals: To be met following discharge from inpatient: Patient will demonstrate 5/5 bilateral lower extremity strength for carry over for gait and transfer safety. Patient will be able to ambulate 300 feet with least restrictive assistive device and independence for community ambulation. Patient will be independent with bed mobility including rolling left to right and right to left. TREATMENT PLAN: Patient will be seen B.I.D during the week and one time per day over the weekend as an inpatient to address the above goals and objectives. INITIAL TREATMENT: Treatment today consisted of the physical therapy evaluation followed by ambulation with contact guard assist followed by range of motion manually resisted activities. The patient was left in bed with bed alarm on and call button within reach. The patient was in no apparent distress and nursing was notified. [facility]ITAL[facility]
[2017-06-29] MEDS: ACETAMINOPHEN 325 MG TABLET PO PRN ×2 (12:08→17:43)
--- NOTE | 2017-06-29 12:42 | PDOC(PROG) ---
Interval History: Patient is doing well in regards to his urinary tract infection with the stabilization of his vitals and labs he does have major major depressive disorder which she admits to [employer] as visited with him as well this morning. Denies any abdominal pain at this point Objective : Data - Labs CBC and BMP: 06/29/17 03:57 06/29/17 03:57 Objective : Exam - General General Appearance: Cooperative - Neck Neck Exam: Normal Inspection - Respiratory Respiratory Exam: Clear to Auscultation - Bilaterally, Breathing Non Labored, Normal To Percussion - Cardiovascular Cardiovascular Exam: No Murmur, No Clicks, No Gallops - Extremities Extremities Exam: No Clubbing Present, No Edema Present Assessment and Plan - Patient Problems (1) UTI (urinary tract infection) Current Visit: Yes Status: Acute Code(s): N39.0 - Urinary tract infection, site not specified Qualifiers: Urinary tract infection type: acute pyelonephritis Qualified Code(s): N10 - Acute pyelonephritis (2) Hypertension Current Visit: No Status: Acute Code(s): I10 - Essential (primary) hypertension - Assessment / Plan Additional Assessment/Plan Details: #1 urinary tract infection this is improved labs improved vital signs are stabilized blood cultures remain negative we'll switch to oral levofloxacin for 3 more days. #2 depression [employer] for consult the patient is already on antidepressant from primary care physician [employer] have made an appointment with him to follow-up with psychiatry and manages medication patient is not suicidal patient is not homicidal and is cleared to be discharged home from [employer]. I also asked him these questions as well. I would feel comfortable with the patient could do one session of physical therapy before discharging home most likely in a.m. #3 hypertension we'll resume his medication
--- NOTE | 2017-06-29 17:06 | PT.PROG ---
Progress Note Progress Note: S: Venu reports that he is experiencing a lot of back pain (5/10). Venu stated that his pain is somewhat relieved when he is in motion, but that he experiences a stabbing pain in his low back. O: Tx included: ambulation with CGA, [id number]; hot pack, x15min. Venu experienced intermittent shooting pain in his low back (kidney area) that caused him to stop moving and reach for his abdomen. A: Venu has limited mobility due to pain. Venu ambulates slowly and cautiously in order to avoid increasing his pain symptoms. Venu experienced a stabbing pain while sitting and pointed P: Continue POC as tolerated.
[2017-06-29] MEDS: Mirtazapine Tab 30 MG TAB PO SCH (20:12)
[2017-06-29] MEDS: Mirtazapine Tab 15 MG TAB PO SCH (20:12)
[2017-06-30] MEDS: ACETAMINOPHEN 325 MG TABLET PO PRN (02:32)
[2017-06-30 04:28] VITALS: RESP 20; O2SAT 96
[2017-06-30 04:47] LABS: BASOPHILS # (AUTO) 0.02 10*3/UL; BASOPHILS % (AUTO) 0.4 % (0-1); EOSINOPHILS # (AUTO) 0.04 10*3/UL; EOSINOPHILS % (AUTO) 0.8 % (0-8); Hematocrit [HCT] 38.6 % (42.0-52.0); LYMPHOCYTES # (AUTO) 1.03 10*3/uL; MEAN CORPUSCULAR HGB CONC 33.7 g/dL (33-37); MEAN PLATELET VOLUME 9.9 FL (7.4-12.2); MONOCYTES # (AUTO) 0.67 10*3/UL (0.3-0.8); MONOCYTES % (AUTO) 12.7 % (5-15); NEUTROPHILS % (AUTO) 66.2 % (50-80); RED BLOOD COUNT 4.49 10^6/uL (4.70-6.10)
[2017-06-30 05:06] LABS: BLOOD UREA NITROGEN 7 mg/dL (7-22); SERUM ALBUMIN 3.8 g/dL (3.5-4.8)
[2017-06-30 05:07] LABS: PLATELET MORPHOLOGY COMMENT NORMAL MORPHOLOGY (NORM); RBC MORPHOLOGY COMMENT NORMAL MORPHOLOGY (NORM); WBC MORPHOLOGY COMMENT NORMAL MORPHOLOGY (NORM)
[2017-06-30 08:44] VITALS: BP 134/76; TEMP 98.2
--- NOTE | 2017-06-30 09:36 | DCSUMMARY ---
Hospitalization Summary Discharge Date: 06/30/17 Primary Diagnosis:: urinary tract infection Hospital Course: Final Discharge Diagnosis: Current Visit Problems Problem Status Onset Code UTI (urinary tract infection) Acute N39.0 Depression Diagnostic Data, Laboratory Data, and Procedures of Signifigance: Laboratory Results 06/27/17 06/27/17 06/27/17 Range/Units 14:26 14:45 14:45 WBC 19.09 H (4.8-10.8) 10^3/uL RBC 4.66 L (4.70-6.10) 10^6/uL Hgb 13.7 L (14.0-18.0) g/dL Hct 40.0 L (42.0-52.0) % MCV 85.8 (80-90) FL MCH 29.4 (27-31) PG MCHC 34.3 (33-37) g/dL RDW Std Deviation 46.0 (39-50) fL RDW Coeff of Rodrigue 14.9 H (11.5-14.5) % Plt Count 306 (140-350) 10*3/uL MPV 9.8 (7.4-12.2) FL Immature Gran % (Auto) 0.2 (0-5) % Neut % (Auto) 84.5 H (50-80) % Lymph % (Auto) 6.3 L (10-50) % [place] % (Auto) 8.1 (5-15) % Eos % (Auto) 0.2 (0-8) % Baso % (Auto) 0.7 (0-1) % Immature Gran # (Auto) 0.04 10*3/UL Neut # (Auto) 16.12 10*3/UL Lymph # (Auto) 1.21 10*3/uL [place] # (Auto) 1.54 H (0.3-0.8) 10*3/UL Eos # (Auto) 0.04 10*3/UL Baso # (Auto) 0.14 10*3/UL WBC Morphology Comment Normal morphology (NORM) Plt Morphology Comment Normal morphology (NORM) RBC Morph Comment Normal morphology (NORM) D-Dimer (0.00-0.59) mg/L Sodium 134 L (135-145) meq/L Potassium 3.5 L (3.8-5.2) meq/L Chloride 100 (98-112) meq/L Carbon Dioxide 21 L (23-33) meq/L Anion Gap 13 (5-20) BUN 15 (7-22) mg/dL Creatinine 0.8 (0.70-1.50) mg/dL Estimated GFR > 60 (>60 ml/min/1.73m(2)) BUN/Creatinine Ratio 18.75 (6-20) Glucose 125 H (78-110) mg/dL Calculated Osmolality 279.0 (267-292) mOsm/kg Lactic Acid (0.70-2.10) MMOL/L Calcium 9.8 (8.7-10.7) mg/dL Total Bilirubin 2.3 H (0.3-1.2) mg/dL AST 28 (21-57) IU/L ALT 49 (21-72) IU/L Alkaline Phosphatase 84 (38-126) IU/L Troponin I (< 0.040) ng/mL Total Protein 7.0 (6.1-8.0) g/dL Albumin 4.2 (3.5-4.8) g/dL Globulin 2.7 (2.50-4.10) g/dL Albumin/Globulin Ratio 1.50 (1.3-2.0) mg/g Amylase 42 (30-110) U/L Lipase 32 (23-300) IU/L PSA Screen (0.006-4.00) ng/ml TSH (0.2700-4.2000) uIU/mL Ur Collection Type Clean catch urine Urine Color Yellow (Y) Urine Clarity Slightly cloudy (CLEAR) Urine pH 7.5 (5.0-8.5) Ur Specific [place] 1.015 (1.005-1.030) Urine Protein 100 A (NEG) mg/dl Urine Glucose (UA) Negative (NEG) mg/dL Urine Ketones 15 (NEG) Urine Occult Blood Large H (NEG) Urine Nitrate Positive H (NEG) Urine Bilirubin Negative (NEG) Urine Urobilinogen 1.0 (0.2) EU/dL Ur Leukocyte Esterase Moderate (NEG) Urine RBC 10-12 (NONE) /hpf Urine WBC 20-30 (NONE) Ur Squamous Epith Cells None (NONE) Ur Renal Epithelial Cell None (NONE) Urine Crystals None Urine Bacteria Many H (NONE) Urine Casts None (NONE) Urine Mucus None (NONE) Urine Trichomonas None (NONE) Urine Yeast None (NONE) Ur Culture Indicated? Culture set 06/27/17 06/27/17 06/27/17 Range/Units 14:45 14:45 15:00 WBC (4.8-10.8) 10^3/uL RBC (4.70-6.10) 10^6/uL Hgb (14.0-18.0) g/dL Hct (42.0-52.0) % MCV (80-90) FL MCH (27-31) PG MCHC (33-37) g/dL RDW Std Deviation (39-50) fL RDW Coeff of [place] (11.5-14.5) % Plt Count (140-350) 10*3/uL MPV (7.4-12.2) FL Immature Gran % (Auto) (0-5) % Neut % (Auto) (50-80) % Lymph % (Auto) (10-50) % [place] % (Auto) (5-15) % Eos % (Auto) (0-8) % Baso % (Auto) (0-1) % Immature Gran # (Auto) 10*3/UL Neut # (Auto) 10*3/UL Lymph # (Auto) 10*3/uL [place] # (Auto) (0.3-0.8) 10*3/UL Eos # (Auto) 10*3/UL Baso # (Auto) 10*3/UL WBC Morphology Comment (NORM) Plt Morphology Comment (NORM) RBC Morph Comment (NORM) D-Dimer 0.84 H (0.00-0.59) mg/L Sodium (135-145) meq/L Potassium (3.8-5.2) meq/L Chloride (98-112) meq/L Carbon Dioxide (23-33) meq/L Anion Gap (5-20) BUN (7-22) mg/dL Creatinine (0.70-1.50) mg/dL Estimated GFR (>60 ml/min/1.73m(2)) BUN/Creatinine Ratio (6-20) Glucose (78-110) mg/dL Calculated Osmolality (267-292) mOsm/kg Lactic Acid 2.5 H (0.70-2.10) MMOL/L Calcium (8.7-10.7) mg/dL Total Bilirubin (0.3-1.2) mg/dL AST (21-57) IU/L ALT (21-72) IU/L Alkaline Phosphatase (38-126) IU/L Troponin I (< 0.040) ng/mL Total Protein (6.1-8.0) g/dL Albumin (3.5-4.8) g/dL Globulin (2.50-4.10) g/dL Albumin/Globulin Ratio (1.3-2.0) mg/g Amylase (30-110) U/L Lipase (23-300) IU/L PSA Screen 4.43 H (0.006-4.00) ng/ml TSH (0.2700-4.2000) uIU/mL Ur Collection Type Urine Color (Y) Urine Clarity (CLEAR) Urine pH (5.0-8.5) Ur Specific [place] (1.005-1.030) Urine Protein (NEG) mg/dl Urine Glucose (UA) (NEG) mg/dL Urine Ketones (NEG) Urine Occult Blood (NEG) Urine Nitrate (NEG) Urine Bilirubin (NEG) Urine Urobilinogen (0.2) EU/dL Ur Leukocyte Esterase (NEG) Urine RBC (NONE) /hpf Urine WBC (NONE) Ur Squamous Epith Cells (NONE) Ur Renal Epithelial Cell (NONE) Urine Crystals Urine Bacteria (NONE) Urine Casts (NONE) Urine Mucus (NONE) Urine Trichomonas (NONE) Urine Yeast (NONE) Ur Culture Indicated? 06/27/17 06/28/17 06/28/17 Range/Units 15:00 08:15 08:15 WBC 16.54 H (4.8-10.8) 10^3/uL RBC 4.24 L (4.70-6.10) 10^6/uL Hgb 12.6 L (14.0-18.0) g/dL Hct 37.4 L (42.0-52.0) % MCV 88.2 (80-90) FL MCH 29.7 (27-31) PG MCHC 33.7 (33-37) g/dL RDW Std Deviation 48.6 (39-50) fL RDW Coeff of [place] 15.3 H (11.5-14.5) % Plt Count 252 (140-350) 10*3/uL MPV 9.8 (7.4-12.2) FL Immature Gran % (Auto) 0.8 (0-5) % Neut % (Auto) 82.2 H (50-80) % Lymph % (Auto) 5.8 L (10-50) % [place] % (Auto) 8.8 (5-15) % Eos % (Auto) 0.5 (0-8) % Baso % (Auto) 1.9 H (0-1) % Immature Gran # (Auto) 0.14 10*3/UL Neut # (Auto) 13.58 10*3/UL Lymph # (Auto) 0.96 10*3/uL [place] # (Auto) 1.46 H (0.3-0.8) 10*3/UL Eos # (Auto) 0.09 10*3/UL Baso # (Auto) 0.31 10*3/UL WBC Morphology Comment Normal morphology (NORM) Plt Morphology Comment Normal morphology (NORM) RBC Morph Comment Normal morphology (NORM) D-Dimer (0.00-0.59) mg/L Sodium 137 (135-145) meq/L Potassium 4.2 (3.8-5.2) meq/L Chloride 107 (98-112) meq/L Carbon Dioxide 21 L (23-33) meq/L Anion Gap 9 (5-20) BUN 9 (7-22) mg/dL Creatinine 0.7 (0.70-1.50) mg/dL Estimated GFR > 60 (>60 ml/min/1.73m(2)) BUN/Creatinine Ratio 12.85 (6-20) Glucose 114 H (78-110) mg/dL Calculated Osmolality 283.0 (267-292) mOsm/kg Lactic Acid (0.70-2.10) MMOL/L Calcium 8.8 (8.7-10.7) mg/dL Total Bilirubin 1.8 H (0.3-1.2) mg/dL AST 19 L (21-57) IU/L ALT 37 (21-72) IU/L Alkaline Phosphatase 72 (38-126) IU/L Troponin I (< 0.040) ng/mL Total Protein 5.5 L (6.1-8.0) g/dL Albumin 3.1 L (3.5-4.8) g/dL Globulin 2.4 L (2.50-4.10) g/dL Albumin/Globulin Ratio 1.20 L (1.3-2.0) mg/g Amylase (30-110) U/L Lipase (23-300) IU/L PSA Screen (0.006-4.00) ng/ml TSH 0.604 (0.2700-4.2000) uIU/mL Ur Collection Type Urine Color (Y) Urine Clarity (CLEAR) Urine pH (5.0-8.5) Ur Specific [place] (1.005-1.030) Urine Protein (NEG) mg/dl Urine Glucose (UA) (NEG) mg/dL Urine Ketones (NEG) Urine Occult Blood (NEG) Urine Nitrate (NEG) Urine Bilirubin (NEG) Urine Urobilinogen (0.2) EU/dL Ur Leukocyte Esterase (NEG) Urine RBC (NONE) /hpf Urine WBC (NONE) Ur Squamous Epith Cells (NONE) Ur Renal Epithelial Cell (NONE) Urine Crystals Urine Bacteria (NONE) Urine Casts (NONE) Urine Mucus (NONE) Urine Trichomonas (NONE) Urine Yeast (NONE) Ur Culture Indicated? 06/28/17 06/28/17 06/29/17 Range/Units 08:15 08:31 03:57 WBC 9.41 (4.8-10.8) 10^3/uL RBC 4.16 L (4.70-6.10) 10^6/uL Hgb 12.1 L (14.0-18.0) g/dL Hct 36.4 L (42.0-52.0) % MCV 87.5 (80-90) FL MCH 29.1 (27-31) PG MCHC 33.2 (33-37) g/dL RDW Std Deviation 46.7 (39-50) fL RDW Coeff of [place] 14.9 H (11.5-14.5) % Plt Count 245 (140-350) 10*3/uL MPV 10.2 (7.4-12.2) FL Immature Gran % (Auto) 0.3 (0-5) % Neut % (Auto) 83.3 H (50-80) % Lymph % (Auto) 8.5 L (10-50) % [place] % (Auto) 7.3 (5-15) % Eos % (Auto) 0.4 (0-8) % Baso % (Auto) 0.2 (0-1) % Immature Gran # (Auto) 0.03 10*3/UL Neut # (Auto) 7.83 10*3/UL Lymph # (Auto) 0.80 10*3/uL [place] # (Auto) 0.69 (0.3-0.8) 10*3/UL Eos # (Auto) 0.04 10*3/UL Baso # (Auto) 0.02 10*3/UL WBC Morphology Comment Normal morphology (NORM) Plt Morphology Comment Normal morphology (NORM) RBC Morph Comment Normal morphology (NORM) D-Dimer (0.00-0.59) mg/L Sodium (135-145) meq/L Potassium (3.8-5.2) meq/L Chloride (98-112) meq/L Carbon Dioxide (23-33) meq/L Anion Gap (5-20) BUN (7-22) mg/dL Creatinine (0.70-1.50) mg/dL Estimated GFR (>60 ml/min/1.73m(2)) BUN/Creatinine Ratio (6-20) Glucose (78-110) mg/dL Calculated Osmolality (267-292) mOsm/kg Lactic Acid 0.8 (0.70-2.10) MMOL/L Calcium (8.7-10.7) mg/dL Total Bilirubin (0.3-1.2) mg/dL AST (21-57) IU/L ALT (21-72) IU/L Alkaline Phosphatase (38-126) IU/L Troponin I < 0.012 (< 0.040) ng/mL Total Protein (6.1-8.0) g/dL Albumin (3.5-4.8) g/dL Globulin (2.50-4.10) g/dL Albumin/Globulin Ratio (1.3-2.0) mg/g Amylase (30-110) U/L Lipase (23-300) IU/L PSA Screen (0.006-4.00) ng/ml TSH (0.2700-4.2000) uIU/mL Ur Collection Type Urine Color (Y) Urine Clarity (CLEAR) Urine pH (5.0-8.5) Ur Specific [place] (1.005-1.030) Urine Protein (NEG) mg/dl Urine Glucose (UA) (NEG) mg/dL Urine Ketones (NEG) Urine Occult Blood (NEG) Urine Nitrate (NEG) Urine Bilirubin (NEG) Urine Urobilinogen (0.2) EU/dL Ur Leukocyte Esterase (NEG) Urine RBC (NONE) /hpf Urine WBC (NONE) Ur Squamous Epith Cells (NONE) Ur Renal Epithelial Cell (NONE) Urine Crystals Urine Bacteria (NONE) Urine Casts (NONE) Urine Mucus (NONE) Urine Trichomonas (NONE) Urine Yeast (NONE) Ur Culture Indicated? 06/29/17 06/30/17 06/30/17 Range/Units 03:57 04:23 04:23 WBC 5.28 (4.8-10.8) 10^3/uL RBC 4.49 L (4.70-6.10) 10^6/uL Hgb 13.0 L (14.0-18.0) g/dL Hct 38.6 L (42.0-52.0) % MCV 86.0 (80-90) FL MCH 29.0 (27-31) PG MCHC 33.7 (33-37) g/dL RDW Std Deviation 45.3 (39-50) fL RDW Coeff of [place] 14.7 H (11.5-14.5) % Plt Count 281 (140-350) 10*3/uL MPV 9.9 (7.4-12.2) FL Immature Gran % (Auto) 0.4 (0-5) % Neut % (Auto) 66.2 (50-80) % Lymph % (Auto) 19.5 (10-50) % [place] % (Auto) 12.7 (5-15) % Eos % (Auto) 0.8 (0-8) % Baso % (Auto) 0.4 (0-1) % Immature Gran # (Auto) 0.02 10*3/UL Neut # (Auto) 3.50 10*3/UL Lymph # (Auto) 1.03 10*3/uL [place] # (Auto) 0.67 (0.3-0.8) 10*3/UL Eos # (Auto) 0.04 10*3/UL Baso # (Auto) 0.02 10*3/UL WBC Morphology Comment Normal morphology (NORM) Plt Morphology Comment Normal morphology (NORM) RBC Morph Comment Normal morphology (NORM) D-Dimer (0.00-0.59) mg/L Sodium 137 137 (135-145) meq/L Potassium 3.3 L 3.4 L (3.8-5.2) meq/L Chloride 102 103 (98-112) meq/L Carbon Dioxide 23 22 L (23-33) meq/L Anion Gap 12 12 (5-20) BUN 7 7 (7-22) mg/dL Creatinine 0.8 0.7 (0.70-1.50) mg/dL Estimated GFR > 60 > 60 (>60 ml/min/1.73m(2)) BUN/Creatinine Ratio 8.75 10.00 (6-20) Glucose 113 H 111 H (78-110) mg/dL Calculated Osmolality 282.0 282.0 (267-292) mOsm/kg Lactic Acid (0.70-2.10) MMOL/L Calcium 9.1 9.5 (8.7-10.7) mg/dL Total Bilirubin 1.3 H 1.0 (0.3-1.2) mg/dL AST 26 38 (21-57) IU/L ALT 50 59 (21-72) IU/L Alkaline Phosphatase 79 91 (38-126) IU/L Troponin I (< 0.040) ng/mL Total Protein 6.2 6.8 (6.1-8.0) g/dL Albumin 3.4 L 3.8 (3.5-4.8) g/dL Globulin 2.8 3.0 (2.50-4.10) g/dL Albumin/Globulin Ratio 1.20 L 1.20 L (1.3-2.0) mg/g Amylase (30-110) U/L Lipase (23-300) IU/L PSA Screen (0.006-4.00) ng/ml TSH (0.2700-4.2000) uIU/mL Ur Collection Type Urine Color (Y) Urine Clarity (CLEAR) Urine pH (5.0-8.5) Ur Specific [place] (1.005-1.030) Urine Protein (NEG) mg/dl Urine Glucose (UA) (NEG) mg/dL Urine Ketones (NEG) Urine Occult Blood (NEG) Urine Nitrate (NEG) Urine Bilirubin (NEG) Urine Urobilinogen (0.2) EU/dL Ur Leukocyte Esterase (NEG) Urine RBC (NONE) /hpf Urine WBC (NONE) Ur Squamous Epith Cells (NONE) Ur Renal Epithelial Cell (NONE) Urine Crystals Urine Bacteria (NONE) Urine Casts (NONE) Urine Mucus (NONE) Urine Trichomonas (NONE) Urine Yeast (NONE) Ur Culture Indicated? Microbiology 06/27/17 14:45 Blood Blood Culture - Preliminary NO GROWTH AFTER 48 HOURS 06/27/17 14:45 Blood Blood Culture - Preliminary NO GROWTH AFTER 48 HOURS 06/27/17 14:26 Urine,Clean Catch Urine Culture - Final Escherichia Coli History and Physical pertinent to Admission: Course of Hospitalization: Is a very nice 52-year-old gentleman with past medical history of depression and hypertension comes into the hospital because of not feeling well and some right lower flank pain. CT scan of the abdomen and pelvis and chest revealed no abnormality but his urine showed the presence of urinary tract infection. Patient was started on IV fluids and levofloxacin that she'll should the antibiotic was because of maybe of the prostate being involved patient did quite well after 3 days of the levofloxacin his white count normalized and patient improved dramatically with resolution of his urinary tract infection. He will be on 4 more days of levo. He also has a history of depression and was really wanting to see a counselor we consult Xoinka which she will follow-up with on Monday he will also see a psychiatrist at that point patient is not suicidal and is not homicidal. His friends came to see him today he is an excellent mood and would like to be discharged home if possible. I will also make him an appointment with urology in [place] since he said that he had some blood in his urine for the last 3 weeks. But didn't think much of it. He agrees and understands. He also will take some potassium replacement and a prescription was written On the date of discharge, the patient was examined: Gen.: No acute distress, alert, nontoxic Heart: Regular rate and rhythm, no murmurs, clicks, gallops, or rubs Lungs: Clear to auscultation bilaterally, breathing is nonlabored Abdomen/GI: Normal tones on auscultation, soft, nontender, nondistended Musculoskeletal/extremities: No clubbing, cyanosis, or edema Vitals reviewed and are listed below Vital Signs (24 hrs) Temp Pulse Pulse Resp BP BP Pulse Ox 06/30/17 08:43 98.2 F 75 20 134/76 96 06/30/17 07:00 80 06/30/17 04:37 96 06/30/17 04:23 98.7 F 80 20 123/70 96 06/29/17 21:00 98.9 F 94 18 136/86 95 06/29/17 16:51 97.6 F 86 18 143/86 95 06/29/17 11:28 100.2 F H 97 21 140/80 94 Assessment and Plan: 1. As per discharge assessments above 2. Disposition: Home 3. Condition on discharge, stable and improved. 4. Diet: regular diet 5. Activities: resume normal activities he will return to work after he sees the counselor on Monday 6. Follow-Up: 1. PCP in [place] he said he will make his own appointment 2. Urology December 05 at 4 PM in [facility] 7. Medications at the Time of Discharge: Home Medications Medication Instructions Recorded Confirmed Type Melatonin/Pyridoxine [Melatonin 3 1 ea PO PRN tab 08/30/16 06/27/17 History mg Tablet] Mirtazapine 30 mg PO DAILY tab 08/30/16 06/27/17 History Clindamycin HCl 300 mg PO TID #30 cap 05/01/17 Clinic Losartan [Cozaar] 1 tab PO DAILY 06/12/17 06/27/17 History Levofloxacin Tab [Levaquin Tab] 750 mg PO DAILY #4 tab 06/30/17 Rx Mirtazapine [Remeron] 15 mg PO BEDTIME tab 06/30/17 Rx Mirtazapine [Remeron] 30 mg PO BEDTIME tab 06/30/17 Rx Potassium Chloride [Klor-Con] 40 meq PO BID #4 tab 06/30/17 Rx 3 Generic Name Dose Route Start Last Admin Trade Name Freq PRN Reason Stop Dose Admin Acetaminophen 650 mg 06/27/17 18:03 06/30/17 02:32 Tylenol PO 650 mg Q6H PRN Administration Pain or Fever Sodium Chloride 25 mls @ 200 mls/hr 06/27/17 18:03 Normal Saline 0.9% IV .Post Infusion PRN No Primary IV for Flush ONLY Levofloxacin 750 mg 06/30/17 09:00 Levaquin Tab PO DAILY TAURUS Lidocaine HCl 0.5 ml 06/27/17 18:03 Lidocaine Buffered Inj SUBD ONCE PRN IV Starts Mirtazapine 15 mg 06/27/17 22:30 06/29/17 20:12 Remeron PO 15 mg BEDTIME TAURUS Administration Mirtazapine 30 mg 06/27/17 22:30 06/29/17 20:12 Remeron PO 30 mg BEDTIME TAURUS Administration Potassium Chloride 40 meq 06/29/17 09:00 06/29/17 20:12 Klor-Con PO 40 meq BID TAURUS Administration Sodium Chloride 5 - 20 ml 06/27/17 18:03 Saline Flush IVP BID PRN Flush 8. Time, care, counseling and coordination of care for this discharge is greater than 30 minutes. Exam - Vitals Vital Signs: Vital Signs Temperature 98.2 F Temperature Source Temporal Artery Scan Pulse Rate [Apical] 80 Pulse Rate [Pulse Oximeter] 75 Pulse Rate 86 Respiratory Rate 20 Blood Pressure [Right Arm] 134/76 Blood Pressure [Left Arm] 136/86 Blood Pressure 115/66 Pulse Ox 96 Oxygen Flow Rate 1 Oxygen Delivery Method Room Air Height 5 ft 11 in Weight 237 lb Patient Problems - Patient Problem List (1) UTI (urinary tract infection) Current Visit: Yes Status: Acute Comment: pos u/a could also be prostate this is why we will choose levaquin. ct chest abd pelvis unremarkable. will piero need to follow with urology Code(s): N39.0 - Urinary tract infection, site not specified Qualifiers: Urinary tract infection type: acute pyelonephritis Qualified Code(s): N10 - Acute pyelonephritis Category: Medical (2) Hypertension Current Visit: No Status: Acute Comment: Patient was started on Levaquin and IV fluids with potassium replacement I will also check a PSA and a TSH we will resume his usual blood pressure medication and depression medication Code (s): I10 - Essential (primary) hypertension Category: Medical
[2017-06-30] MEDS: POTASSIUM CHLORIDE 20 MEQ TAB PO SCH (09:38)
== END 2017-06-30 10:14 | disposition home or self-care (01) | DRG 690 ==
LOC: ER 14:01 → MED/SURG 18:03
PROVIDERS: ADMIT Internal Medicine; ATTEND Internal Medicine